=== PATIENT | female | born 1960 | race Caucasian/White ===

== ENCOUNTER 2017-04-30 11:51 | Emergency (ER) | payer SELFPAY ==
[~2017-04-30] VITALS: Ht 162.6 cm; Wt 63.0 kg
[2017-04-30 16:55] LABS: BASOPHILS % 0.5 % (0.0-2.0); EOSINOPHILS % 0.6 % (0.0-5.0); HEMATOCRIT. 40.8 % (36.0-48.0); HEMOGLOBIN. 13.9 g/dL (12.0-16.0); MEAN CORPUSCULAR HEMOGLOBIN 33.5 pg (28.0-32.0); MEAN CORPUSCULAR VOLUME 98.2 fL (81.0-99.0); MONOCYTES % 4.8 % (2.0-8.0); NEUTROPHILS % 72.1 % (40.0-76.0); PLATELET 247 x1000/uL (130-400); RED BLOOD CELL COUNT 4.15 mill/uL (4.2-5.4); RED CELL DISTRIBUTION WIDTH 13.2 % (11.6-14.6)
[2017-04-30 17:00] LABS: CHLORIDE 107 mEq/L (98-107)
[2017-04-30 18:42] VITALS: BP 119/63
== END 2017-04-30 18:44 | disposition home or self-care (01) ==
LOC: ER 11:51
DX: R20.2 Paresthesia of skin (principal)
CPT/HCPCS: 36415; 80053; 85025; 93005; 99285